=== PATIENT | female | born 1990 | race Caucasian/White ===

== ENCOUNTER 2016-10-30 12:12 | Emergency (ER) | payer OTHER ==
[~2016-10-30] VITALS: Ht 165.1 cm; Wt 51.6 kg
[2016-10-30 12:17] VITALS: TEMP 36.8; Ht 165.1 cm; Wt 51.6 kg
[2016-10-30] MEDS ORDERED: OMEG10007 PO (13:24)
[2016-10-30] MEDS ORDERED: SODIUM CHLORIDE 0.9% 1000ML 1,000 ML IV STA ×2 (14:20→16:05)
[2016-10-30] MEDS ORDERED: METOCLOPRAMIDE HCL INJ 5 MG/ML 2 ML VIAL IV STA (14:20)
[2016-10-30] MEDS ORDERED: DiphenhydrAMINE HCL 50 MG/ML VIAL IV STA (14:20)
[2016-10-30] MEDS ORDERED: KETOROLAC TROMETHAMINE 30 MG/ML VIAL IV STA (14:40)
--- NOTE | 2016-10-30 14:42 | EMERGENCY ROOM VISIT NOTE ---
History Report prepared by Angelique: Antony Motley Under the Supervision of: Dr. Levar Herzog M.D. First contact with patient: 14:06 Chief Complaint: HEADACHE Stated Complaint: MIGRAINE, DIZZINESS, LIGHTHEADED, SORE NECK/BACK History of Present Illness The patient is a 26 year old female who presents to the Emergency Room with complaints of a worsening headache that started four weeks ago. She rates her discomfort as a 8/10 in severity and describes it as a pressure. She admits that the pain is relieved with Advil and Excedrin. The patient states that it radiates from in between her eyes into her jaw and it makes her ears pop. The patient states that the first week, the headache began as a tingling sensation in the middle of her head, which would turn into a pressure at night. She states that her headache eventually turned into a constant pressure. She states that she went to her PCP who thought it was a sinus infection and gave her medication. The patient states that she went back to her PCP since the medication did not work. She states he found two abnormal muscles in her neck, which caused her pain with palpation. The patient states that she went to her physical therapist four days ago when her therapist was worried it was an SCM strain causing the pressure. She states that during her visit, the therapist was just massaging her muscles. The patient states that following her session, she started to experience lightheadedness. She reports that the lightheadedness and dizziness continued throughout the weekend. The patient states that she suddenly started to experience nausea yesterday. The patient is accompanied by her mother who states that she was initially worried that her symptoms were due to Lyme's disease since she and Lyme's twice and the patient [place]. The patient states that she had a Lyme's test done, but reports her test was negative. The patient admits that she has an appointment with Neurology November 13. The patient's mother admits that she has been giving the patient Doxycycline twice a day for the last two days due to her fear that it was Lyme's disease She denies any daily medication, medical problems, fever, chills, vomiting, chest pain, alcohol, drugs, smoking, a possible since her last normal menstrual period was last week, urinary symptoms, rashes, STD and a tick bite. Source of History: patient, parent Onset: four weeks ago Position: head Symptom Intensity: 10/18 Quality: pressure Timing: worsening Modifying Factors (Relieving): other (Advil, Excedrin) Associated Symptoms: + neck pain, + nausea, No fevers, No chills, No chest pain, No vomiting, No abdominal pain, No urinary symptoms, No rash Review of Systems See HPI for pertinent positives and negatives. A total of ten systems were reviewed and were otherwise negative. Past Medical & Surgical The patient reports no pertinent medical or surgical history. Family History Heart disease Social History Smoking Status: Never Smoker Smokeless Tobacco Use: No Alcohol Use: occasionally Drug Use: none Marital Status: Housing Status: lives with significant other Occupation Status: employed Current/Historical Medications Scheduled Doxycycline Hyclate (Doxycycline Hyclate), 1 CAP PO BID Fish Oil ([place]-3), 1 CAP PO DAILY Allergies Coded Allergies: Sulfa Antibiotics (Unverified Allergy, Unknown, ., 10/30/16) Physical Exam Vital Signs Date Time Temp Pulse Resp B/P (MAP) Pulse Ox O2 Delivery O2 Flow Rate FiO2 10/30/16 22:50 90 120/72 98 10/30/16 20:29 87 131/69 98 Room Air 10/30/16 18:08 93 20 113/69 99 Room Air 10/30/16 16:19 90 18 113/63 98 Room Air 10/30/16 15:25 85 18 109/65 98 Room Air 10/30/16 14:10 94 18 128/81 100 Room Air 10/30/16 12:17 36.8 131 16 151/86 98 Room Air Physical Exam GENERAL: Awake, alert, well-appearing, in no distress HENT: Normocephalic, atraumatic. Oropharynx unremarkable. EYES: Normal conjunctiva. Sclera non-icteric. NECK: Supple. No nuchal rigidity. FROM. No JVD. RESPIRATORY: Clear to auscultation. CARDIAC: Regular rate, normal rhythm. Extremities warm and well perfused. Pulses equal. ABDOMEN: Soft, non-distended. No tenderness to palpation. No rebound or guarding. No masses. RECTAL: Deferred. MUSCULOSKELETAL: Chest examination reveals no tenderness. The back is symmetrical on inspection without obvious abnormality. There is no CVA tenderness to palpation. No joint edema. LOWER EXTREMITIES: Calves are equal size bilaterally and non-tender. No edema. No discoloration. NEURO: Normal sensorium. No sensory or motor deficits noted. CNII-XII intact, cerebellar intact, stable gait. SKIN: No rash or jaundice noted. Medical Decision & Procedures ER Provider Diagnostic Interpretation: Radiology results as stated below per my review and radiologist interpretation: MRI OF THE BRAIN WITHOUT AND WITH IV CONTRAST CLINICAL HISTORY: 3 week contrast and headache. Dizziness. COMPARISON STUDY: No previous studies for comparison. TECHNIQUE: Utilizing a 1.5 Bhavna magnet and dedicated coil, multiplanar, multiecho imaging of the brain was performed pre and postcontrast administration. IV administration of 5 mL of Gadavist contrast was uneventful. FINDINGS: No areas of restricted diffusion are present. No acute intracranial hemorrhage, midline shift or mass effect is present. Brain volume is normal. Ventricular system is normal. There is 4 mm of cerebellar tonsillar ectopia. Calvarial signal is normal. No intracranial mass or pathologic enhancement is present. There is a 2 mm punctate focus of white matter T2 hyperintensity within the right parietal lobe. This is of doubtful significance. There are no extra-axial collections. Flow-voids for the major intracranial vessels are present. There is no fluid within the mastoid air cells. Sinuses are clear. IMPRESSION: 1. No acute intracranial findings. 2. No intracranial mass or pathologic enhancement. 3. Mild cerebellar tonsillar ectopia of 4 mm. This does not meet criteria for a Chiari malformation. 4. Punctate 2 mm focus of white matter T2 hyperintensity within the right parietal lobe. This is nonspecific but of doubtful significance. Electronically signed by: Heriberto Hammond M.D. 10/30/2016 5:23 PM Dictated Date/Time: 10/30/2016 5:17 PM Laboratory Results Test 10/30/16 13:28 10/30/16 14:50 Lyme Disease IgG Antibody NEG (NEG) Urine Test NEG (NEG) Laboratory results reviewed by me Medications Administered Medications (Trade) Dose Ordered Sig/Gera Route Start Time Stop Time Status Last Admin Dose Admin Sodium Chloride 1,000 ml @ 999 mls/hr Q1H1M STAT IV 10/30/16 14:20 10/30/16 15:20 DC 10/30/16 14:42 999 MLS/HR Metoclopramide HCl (Reglan Inj) 10 mg NOW STAT IV 10/30/16 14:20 10/30/16 14:25 DC 10/30/16 14:41 10 MG Diphenhydramine HCl (Benadryl Inj) 25 mg NOW STAT IV 10/30/16 14:20 10/30/16 14:25 DC 10/30/16 14:41 25 MG Ketorolac Tromethamine (Toradol Inj) 30 mg NOW STAT IV 10/30/16 14:40 10/30/16 14:41 DC 10/30/16 14:44 30 MG Sodium Chloride 1,000 ml @ 999 mls/hr Q1H1M STAT IV 10/30/16 16:05 10/30/16 17:05 DC 10/30/16 16:05 999 MLS/HR Dexamethasone Sodium Phosphate (Decadron Inj) 10 mg NOW ONCE IV 10/30/16 16:15 10/30/16 16:16 DC 10/30/16 16:17 10 MG Ceftriaxone Sodium 2000 mg/ Dextrose 70 ml @ 100 mls/hr ONE STAT IV 10/30/16 18:47 10/30/16 19:28 DC 10/30/16 21:59 100 MLS/HR Procedure Procedure: Lumbar puncture. Indication: Headache Written consent was obtained after explaining risk, benefits, and alternatives and patient was agreeable. A time-out was completed verifying correct patient, procedure, site, positioning, and special equipment if applicable. The patient was initially placed in the right lateral decubitus position in a semi- position with help from the tech. However, after unsuccessfull attempt patient was placed in seated position with help from tech. The area was cleansed and draped in usual sterile fashion. 1% lidocaine was used anesthetize the surrounding skin area. A new <22-gauge 3.5-inch> spinal needle was placed in the L4-L5 interspace for first and second attempt and L3-L4 for third attempt. Attempts unsuccessful. Minor contusion/hematoma to site. Otherwise, patient neurovascularly intact. No complications. ED Course 1418: The patient was evaluated in room C12B. A complete history and physical exam was performed. 1420: Ordered Benadryl Injection 25 mg IV, Reglan Injection 10 mg IV, Sodium Chloride 1000 ml @ 999 mls/hr IV. 1440: Ordered Toradol Injection 30 mg IV. 1532: I reevaluated the patient and she is feeling better. I ordered an MRI. 1605: Ordered Sodium Chloride 1000 ml @ 999 mls/hr IV. 1615: Ordered Decadron Injection 10 mg IV. 1700: Ordered Gadavist 5 mmol IV. 1836: I reevaluated the patient and she is still experiencing symptoms. 184: Ordered Ceftriaxone Sodium 2000 mg/ Dextrose 70 ml @ 100 mls/hr IV. 190: I reevaluated the patient and she is resting comfortably. I discussed treatment options. I advised that she has a lumbar puncture done before taking antibiotics. I will treat her until the confirmatory test comes back. She will be discharged home after the puncture. She agrees to the plan. Medical Decision I reviewed the patient's past medical history, medications, and the nursing notes as described above. The patient's presentation and history were concerning for tension headache, migraine, sinus headache, sinusitis, pseudotumor, infection, Lyme's disease, dehydration, and intracranial hemorrhage, . Patient is a 26-year-old woman presents emergency Department with persistent frontal headache that has been constant for the past 3 weeks per history of present illness. Arrival of the patient is well-appearing and in no acute distress. Afebrile with stable vital signs. While patient reports intermittent lightheadedness denies any difficulty with gait and otherwise denies any changes in vision or hearing. On exam patient is neurologically intact with cranial nerve deficits, ambulates with steady gait, no cerebellar deficits. The patient denies having any history of known tick bites or rashes she feels that she may be exposed to ticks on a regular basis. Because of being out in the combs frequently. Because of this a Lyme screen was ordered despite having a negative screen recently. Otherwise patient was given a migraine cocktail with good effect however the patient still reported some residual pressure. The considering the patient has had prolonged symptoms I had a discussion with the patient and family and we agreed to perform an MRI. MRI with and without contrast was negative for any acute emergent findings. In the interim the patient's initial Lyme screen came back positive for a single IgM antibody, with confirmatory Western blot pending. Considering this finding will begin treatment until confirmatory test done. I discussed with the patient and family the option for a lumbar puncture which would help clarify if there was any infection in the CSF, which could help inform duration of treatment, however my suspicion for meningitis is low considering the patient is well-appearing without any neurologic deficits. Patient was consented and agreed for the lumbar puncture which was attempted however unfortunately was unsuccessful despite 3 attempts. I then discussed with the patient that strong consideration should be given to proceeding with a 28 day course of antibiotics however I will provide a 14 day course to begin and the patient can further discuss with her doctor. Patient and family also given infectious disease as a follow-up as the were particularly concerned to have specialty recommendations. She was given a single dose of ceftriaxone to begin her treatment in the ED. Patient and family were agreeable with plan and were discharged per instructions. (11/01 entry): In ED today, I received a phone call from patient describing soreness and muscle spasm in LP site from day prior. She was wondering if this is normal. She denies weakness or loss of sensation. I explained that considering her LP was unsuccessful and had minor contusion/hematoma, local inflammation/soreness can be expected. I recommended to patient to continue apap /ib for pain scheduled as well as to apply heat for muscle relaxation. I recommend that activity be limited as tolerated but some activity is encouraged to minimize worsening soreness and muscle tightness. Patient requesting muscle relaxer as well. 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 Rx for ativan called in to her pharmacy. Impression Primary Impression: Headache Additional Impression: Lyme disease Scribe Attestation The scribe's documentation has been prepared under my direction and personally reviewed by me in its entirety. I confirm that the note above accurately reflects all work, treatment, procedures, and medical decision making performed by me. Departure Information Dispostion Home / Self-Care Prescriptions Doxycycline Hyclate (Doxycycline Hyclate) 100 Mg Cap 1 CAP PO BID for 14 Days, #28 CAP Prov: Levar Herzog M.D. 10/30/16 Referrals Cisco Hooks III, M.D. (PCP) Patient Instructions ED Lyme Disease, Headache Pain, My [facility] Additional Instructions Please follow up with your primary care physician in the next 1-3 for re- evaluation and to follow up on your Lyme confirmatory test. We were unable to obtain a spinal fluid sample today however your exam is reassuring. Discuss with your doctor the duration of your antibiotic course. To begin you were given a prescription for 14 days. Our case planner will also place a referral for you to see infectious disease. Otherwise, your exam did not show signs of an emergent condition at this time. Return to the emergency department for worsening symptoms as described in the accompanying instructions. Problem Qualifiers
[2016-10-30 16:00] LABS: LYME DISEASE AB IGG NEG (NEG)
[2016-10-30 16:08] LABS: LYME DISEASE AB IGM POS (NEG)
[2016-10-30] MEDS ORDERED: DEXAMETHASONE SOD INJ 10 MG/ML VIAL IV ONE (16:15)
[2016-10-30] MEDS ORDERED: GADAVIST IV PRN (17:00)
--- NOTE | 2016-10-30 17:24 | DIAGNOSTIC IMAGING REPORT ---
MRI OF THE BRAIN WITHOUT AND WITH IV CONTRAST CLINICAL HISTORY: 3 week contrast and headache. Dizziness. COMPARISON STUDY: No previous studies for comparison. TECHNIQUE: Utilizing a 1.5 Bhavna magnet and dedicated coil, multiplanar, multiecho imaging of the brain was performed pre and postcontrast administration. IV administration of 5 mL of Gadavist contrast was uneventful. FINDINGS: No areas of restricted diffusion are present. No acute intracranial hemorrhage, midline shift or mass effect is present. Brain volume is normal. Ventricular system is normal. There is 4 mm of cerebellar tonsillar ectopia. Calvarial signal is normal. No intracranial mass or pathologic enhancement is present. There is a 2 mm punctate focus of white matter T2 hyperintensity within the right parietal lobe. This is of doubtful significance. There are no extra-axial collections. Flow-voids for the major intracranial vessels are present. There is no fluid within the mastoid air cells. Sinuses are clear. IMPRESSION: 1. No acute intracranial findings. 2. No intracranial mass or pathologic enhancement. 3. Mild cerebellar tonsillar ectopia of 4 mm. This does not meet criteria for a Chiari malformation. 4. Punctate 2 mm focus of white matter T2 hyperintensity within the right parietal lobe. This is nonspecific but of doubtful significance. Electronically signed by: Heriberto Hammond M.D. 10/30/2016 5:23 PM Dictated Date/Time: 10/30/2016 5:17 PM
[2016-10-30] MEDS ORDERED: CEFTRIAXONE SOD INJ 2,000 MG in DEXTROSE 5% 50ML 50 ML IV STA (18:47)
[2016-10-30] MEDS ORDERED: XYLOCAINE 1%/SOD BICARB 20 ML VIAL INFIL ONE (20:53)
[2016-10-30] MEDS ORDERED: DXY100 PO (21:59)
[2016-10-30 22:50] VITALS: BP 120/72; PULSE 90; O2SAT 98
[2016-11-06 11:09] LABS: 18KDIGG BAND NONREACTIVE (NONREACTIVE); 23KDIGG BAND NONREACTIVE (NONREACTIVE); 23KDIGM BAND REACTIVE (NONREACTIVE); 28KDIGG BAND NONREACTIVE (NONREACTIVE); 30KDIGG BAND REACTIVE (NONREACTIVE); 39KDIGG BAND NONREACTIVE (NONREACTIVE); 39KDIGM BAND NONREACTIVE (NONREACTIVE); 41KDIGG BAND REACTIVE (NONREACTIVE); 41KDIGM BAND NONREACTIVE (NONREACTIVE); 45KDIGG BAND NONREACTIVE (NONREACTIVE); 58KDIGG BAND NONREACTIVE (NONREACTIVE); 66KDIGG BAND NONREACTIVE (NONREACTIVE); 93KDIGG BAND NONREACTIVE (NONREACTIVE)
== END 2016-10-30 22:51 | disposition home or self-care (01) ==
LOC: C.EDB 12:14 → C.EDC 22:51
DX: R51 Headache (principal); A69.20 Lyme disease, unspecified; Z79.899 Other long term (current) drug therapy

== ENCOUNTER → 2016-11-20 | Outpatient (CLI) | payer OTHER ==
[~2016-11-20] MED LIST: DXY100 PO; IBUP-103 PO; LORA-741 PO; MAGN400T6 PO; OMEG10007 PO; green tea extract; tumeric PO
[2016-11-20 16:43] LABS: BASO % 0.5 %; BASO ABS # 0.04 K/uL (0-0.2); COMPLETE YES; EOS % 1.7 %; IG% 0.2 %; LYMPH % 37.1 %; LYMPH ABS # 3.28 K/uL (1.2-3.4); MEAN CORPUSCULAR HEMOGLOBIN 31.5 pg (25-34); MEAN CORPUSCULAR HGB CONC 33.9 g/dl (32-36); MEAN PLATELET VOLUME 10.5 fL (7.4-10.4); MONO % 7.3 %; NEUT % 53.2 %; PLATELET COUNT 355 K/uL (130-400); RED BLOOD COUNT 4.41 M/uL (4.2-5.4); WHITE BLOOD COUNT 8.85 K/uL (4.8-10.8)
[2016-11-20 17:15] LABS: ALT/SGPT 21 U/L (12-78); AST/SGOT 17 U/L (15-37); BLOOD UREA NITROGEN 11 mg/dl (7-18); BUN/CREATININE RATIO 13.2 (10-20); CARBON DIOXIDE 27 mmol/L (21-32); CHLORIDE 107 mmol/L (98-107); CREATININE 0.81 mg/dl (0.60-1.20); GLUCOSE 75 mg/dl (70-99); POTASSIUM 3.5 mmol/L (3.5-5.1); SODIUM 141 mmol/L (136-145)
[2016-11-20 17:17] LABS: ALB/GLOB RATIO 1.3 (0.9-2); ALKALINE PHOSPHATASE 81 U/L (45-117)
[2016-11-27 01:40] LABS: 18KDIGG BAND NONREACTIVE (NONREACTIVE); 23KDIGG BAND NONREACTIVE (NONREACTIVE); 23KDIGM BAND REACTIVE (NONREACTIVE); 28KDIGG BAND NONREACTIVE (NONREACTIVE); 30KDIGG BAND NONREACTIVE (NONREACTIVE); 39KDIGG BAND NONREACTIVE (NONREACTIVE); 39KDIGM BAND NONREACTIVE (NONREACTIVE); 41KDIGG BAND REACTIVE (NONREACTIVE); 41KDIGM BAND NONREACTIVE (NONREACTIVE); 45KDIGG BAND NONREACTIVE (NONREACTIVE); 58KDIGG BAND NONREACTIVE (NONREACTIVE); 66KDIGG BAND NONREACTIVE (NONREACTIVE); 93KDIGG BAND NONREACTIVE (NONREACTIVE)
[2016-11-29 14:29] LABS: ANAPLASMA PHAGOCYTOPHIL IGG <1:64 (<1:64); ANAPLASMA PHAGOCYTOPHIL IGM <1:20 (<1:20); ANTI-CENTROMERE AB <1.0 NEG AI (<1.0 NEG); ANTI-SS-A <1.0 NEG AI (<1.0 NEG); ANTI-SS-B <1.0 NEG AI (<1.0 NEG); CYTOMEGALOVIRUS IGG AB <0.60 U/ML; DNA ds CRITHIDIA NEGATIVE (NEGATIVE); MICROSOMAL AB <1 IU/ML (<9); R. TYPHI IgG AB Not Detected (Not Detected); R. TYPHI IgM AB Not Detected (Not Detected); RMSF IgM AB Not Detected (Not Detected); Sm Antibody <1.0 NEG AI (<1.0 NEG)
== END | disposition home or self-care (01) ==
LOC: C.LAB1850 15:05
PROVIDERS: ATTEND Internal Medicine Infectious Disease
DX: M13.0 Polyarthritis, unspecified (principal)

== ENCOUNTER 2016-11-26 12:32 | Day surgery (SDC) | payer OTHER ==
[~2016-11-26] VITALS: Ht 165.1 cm; Wt 51.0 kg
[2016-11-26] VITALS (7 sets, daily range): BP systolic 119–165; BP diastolic 64–85; PULSE 81–108; TEMP 36.7–37.3; O2SAT 97–99; Ht 165.1 cm; Wt 51.0 kg
[~2016-11-26 12:32] MED LIST changes: -IBUP-103 PO; -LORA-741 PO; -MAGN400T6 PO; -green tea extract; -tumeric PO
[2016-11-26] MEDS ORDERED: LORA-741 PO (12:52)
[2016-11-26] MEDS ORDERED: IBUP-103 PO (12:52)
[2016-11-26] MEDS ORDERED: green tea extract (12:53)
[2016-11-26] MEDS ORDERED: MAGN400T6 PO (12:53)
[2016-11-26] MEDS ORDERED: tumeric PO (12:53)
[2016-11-26] MEDS ORDERED: CEFTRIAXONE SOD INJ 2000 MG in DEXTROSE 5% 50ML IV SCH (14:00)
--- NOTE | 2016-11-26 14:19 | Discharge Instructions ---
Discharge Instructions Procedure Procedure Date: Nov 26, 2016. Reason for visit: Lymes Disease, Meningitis. Discharge Discharge Date: Nov 26, 2016. Discharge Diagnosis: Headaches. Instructions Activity Recommendations: 1 Day-May resume regular activity, 48 Hours of decreased exertion, 1 Day with no driving/machine use Return to School/Work: no limitations Recommended Home Diet: Resume Previous Diet Provider Instructions: Lumbar Puncture performed with Fluoroscopic guidance [L45 ] level with [22] needle. No complications. Allergies Coded Allergies: Sulfa Antibiotics (Unverified Allergy, Unknown, ., 11/26/16) Raffi Hester Recommendations: Call your doctor if: * Temperature above 101 degrees * Pain not relieved by pain medicine ordered * There is increased drainage or redness from any incision * You have any unanswered questions or concerns. Your Doctors Instructions noted above were prepared by provider Wilfrid Roberto. Patient Signature Section: Patient Instructions Signature Page Karen Pacheco Patient (or Guardian) Signature/Date: I have read and understand the instructions given to me by my caregivers. Caregiver/RN/Doctor Signature/Date: The above-named patient and/or guardian has received patient instructions on this date. + Original Patient Signature Page (only) stays with chart. Please make copy for patient.
[2016-11-26] MEDS ORDERED: ACETAMINOPHEN 500 MG TAB PO PRN (14:30)
--- NOTE | 2016-11-26 14:33 | DIAGNOSTIC IMAGING REPORT ---
LUMBAR PUNCTURE DIAGNOSTIC CLINICAL HISTORY: MD order headache. Lyme' s disease. FLUOROSCOPY TIME: 6 seconds PROCEDURE: The procedure, risks and benefits were discussed with the patient including the risk of spinal headache, bleeding and infection. The patient agreed to the procedure and informed written consent was obtained. The procedure was performed by Dr. Roberto following a timeout. The left L4-L5 interlaminar space was targeted. Skin overlying the space was prepped and draped in the usual sterile fashion and local anesthesia was achieved with 1% lidocaine. Under intermittent fluoroscopic guidance, a 20-gauge x 3 1/2 in. Sprotte needle was inserted into the thecal sac. A total of 9cc of clear, colorless cerebral spinal fluid was obtained and spread amongst 4 vials. The patient tolerated the procedure well. There were no immediate complications. The specimens were sent to the laboratory at the request of the referring physician. IMPRESSION: Successful fluoroscopic guided lumbar puncture with removal of 9 cc of clear, colorless cerebral spinal fluid. No immediate complications. Opening pressure was 10 The above report was generated using voice recognition software. It may contain grammatical, syntax or spelling errors. Electronically signed by: Wilfrid Roberto M.D. 11/26/2016 2:32 PM Dictated Date/Time: 11/26/2016 2:32 PM
[2016-11-26 15:33] LABS: CSF APPEARANCE CLEAR; CSF COLOR COLORLESS; CSF XANTHOCHROMIC NO XANTHOCHROMIA
[2016-12-04 08:56] LABS: ALBUMIN 4.7 g/dL (3.7-5.1); IGG CSF 1.3 mg/dL (0.8-7.7); IGG SERUM 797 mg/dL (694-1618); LYME AB INDEX SCREENED NEGATIVE; LYME DNA PCR CSF OR SYNOVIAL Not detected (Not Detected); LYME DNA SOURCE CSF; MYELIN BASIC PROTEIN 663 <2.0 mcg/L (0.0-4.0)
== END 2016-11-26 18:47 | disposition home or self-care (01) ==
LOC: C.ACU 12:32
PROVIDERS: ATTEND Internal Medicine Infectious Disease
DX: A69.20 Lyme disease, unspecified (principal)

== ENCOUNTER → 2016-11-27 | Outpatient (CLI) | payer OTHER ==
[~2016-11-27] MED LIST changes: +IBUP-103 PO; +LORA-741 PO; +MAGN400T6 PO; +green tea extract; +tumeric PO
[2016-11-27 18:41] LABS: HEMATOCRIT 36.3 % (37-47); MEAN CELL VOLUME 91.2 fL (80-100); MEAN CORPUSCULAR HEMOGLOBIN 31.4 pg (25-34); MEAN CORPUSCULAR HGB CONC 34.4 g/dl (32-36); MEAN PLATELET VOLUME 10.6 fL (7.4-10.4); PLATELET COUNT 235 K/uL (130-400); RED BLOOD COUNT 3.98 M/uL (4.2-5.4); WHITE BLOOD COUNT 8.75 K/uL (4.8-10.8)
[2016-11-27 18:52] LABS: ALT/SGPT 17 U/L (12-78); AST/SGOT 18 U/L (15-37); BLOOD UREA NITROGEN 12 mg/dl (7-18); BUN/CREATININE RATIO 18.7 (10-20); CALCIUM 8.3 mg/dl (8.5-10.1); CARBON DIOXIDE 26 mmol/L (21-32); CHLORIDE 106 mmol/L (98-107); CREATININE 0.66 mg/dl (0.60-1.20); GLUCOSE 86 mg/dl (70-99); POTASSIUM 3.7 mmol/L (3.5-5.1); SODIUM 139 mmol/L (136-145)
[2016-11-27 18:55] LABS: ALB/GLOB RATIO 1.2 (0.9-2); ALKALINE PHOSPHATASE 66 U/L (45-117)
--- NOTE | 2016-12-07 06:50 | CODING QUERY NO DIAGNOSIS ---
Valid Physician Order Needed A valid physician order must be submitted in order to properly bill for the service(s) provided, including date of service(s), valid diagnosis, and physician signature. If these tests are done on a recurring basis the original physician order must be submitted in order to code and bill for the service(s) provided. Please fax us the original, signed physician order so that we may expedite billing to [phone] DOS 11/27/16 * CMP, CBC, ESR Thank you! Tiara [place] Health Information Management
== END | disposition home or self-care (01) ==
LOC: C.LABSPEC 17:35
PROVIDERS: ATTEND Internal Medicine Infectious Disease
DX: A69.20 Lyme disease, unspecified (principal); Z51.81 Encounter for therapeutic drug level monitoring; Z79.899 Other long term (current) drug therapy

== ENCOUNTER → 2016-12-03 | Outpatient (CLI) | payer OTHER ==
[2016-12-03 17:32] LABS: BASO % 0.3 %; BASO ABS # 0.03 K/uL (0-0.2); COMPLETE YES; EOS % 1.4 %; HEMATOCRIT 35.6 % (37-47); IG% 0.1 %; LYMPH % 25.3 %; LYMPH ABS # 2.19 K/uL (1.2-3.4); MEAN CORPUSCULAR HEMOGLOBIN 31.5 pg (25-34); MEAN CORPUSCULAR HGB CONC 34.6 g/dl (32-36); MEAN PLATELET VOLUME 10.6 fL (7.4-10.4); MONO % 7.4 %; NEUT % 65.5 %; PLATELET COUNT 263 K/uL (130-400); RED BLOOD COUNT 3.91 M/uL (4.2-5.4); WHITE BLOOD COUNT 8.64 K/uL (4.8-10.8)
[2016-12-03 17:40] LABS: ALT/SGPT 20 U/L (12-78); AST/SGOT 15 U/L (15-37); BLOOD UREA NITROGEN 9 mg/dl (7-18); BUN/CREATININE RATIO 15.2 (10-20); CALCIUM 8.5 mg/dl (8.5-10.1); CARBON DIOXIDE 28 mmol/L (21-32); CHLORIDE 106 mmol/L (98-107); GLUCOSE 111 mg/dl (70-99); POTASSIUM 3.2 mmol/L (3.5-5.1); SODIUM 141 mmol/L (136-145)
[2016-12-03 17:43] LABS: ALB/GLOB RATIO 1.3 (0.9-2); ALKALINE PHOSPHATASE 63 U/L (45-117)
== END | disposition home or self-care (01) ==
LOC: C.LABSPEC 12:53
PROVIDERS: ATTEND Internal Medicine Infectious Disease
DX: A69.20 Lyme disease, unspecified (principal); Z51.81 Encounter for therapeutic drug level monitoring

== ENCOUNTER 2018-08-01 05:40 | Inpatient (IN) ==
--- OUTSIDE RECORDS SUMMARY | 2018-08-01 05:45 | External Medical Summary | Continuity of Care Document ---
:1990 Author Name Chavez Johnston, Provider Address Unavailable Unavailable , Care Team Providers Name Role Phone Unavailable Unavailable Unavailable Jyoti Johnston, Judd Cai Unavailable [email or web address] FRANKY III, E Unavailable Unavailable Unavailable Unavailable Unavailable Problems Lyme disease (088.81) (A69.20) Polyarthritis (716.50) (M13.0) Allergies and Adverse Reactions Sulfa Drugs (Allergy) Medications Doxycycline Hyclate 100 MG Oral Tablet; Take 1 tablet twice daily Preston Montes Start: 23-Nov-2016 Quantity: 60 Refills: 0 [place] 3 1000 MG Oral Capsule; TAKE 1 CAPSULE Daily , M.D. Start: 20-Nov-2016 Refills: 0 Magnesium 200 MG Oral Tablet Chewable; Take 1 tablet daily , M.D. Start: 20-Nov-2016 Refills: 0 Advil 200 MG Oral Capsule; TAKE 1 CAPSULE EVERY 4 TO 6 HOURS . , M.D. Start: 20-Nov-2016 Refills: 0 Procedures Procedures not documented Immunizations Immunizations not documented Family History Unknown Family Member Family history of thyroid disease (V18.19) Status: Active Comments: Family History (Z83.49) Family history of High cholesterol (272.0) Status: Active Comments: Family History (E78.00) Social History - Smoking Status Never smoker Plan of Treatment Planned Observations Planned Goals not documented Results No Known Results Results not documented Encounters Appointment; Judd Montes M.D. 11-Dec-2016 15:30 Encounter Diagnosis: Problem not documented Appointment; Judd Montes M.D. 26-Nov-2016 11:45 Encounter Diagnosis: Problem not documented Appointment; Judd Montes M.D. 20-Nov-2016 14:15 Encounter Diagnosis: Problem not documented
[2018-08-01] MEDS ORDERED: OXYTOCIN 30 UNITS/500 ML BAG IV PRN ×3 (06:22→14:39)
--- NOTE | 2018-08-01 06:30 | History & Physical Report ---
Date of Service August 01, 2018 Assessment & Plan (1) Amniotic fluid leakin yo at 38.6 wks with LOF/SROM VSS Afebrile GBS negative Discussed expectant management vs induction/ augmentation with pitocin ( decrease risk of intraamniotic infection) She likes to think about it Plans to have epidural for pain Admit, monitor, IVF, Labs (2) SROM (spontaneous rupture of membranes): History of Present Illness Chief Complaint: Leaking of fluids Primary Care Provider: NO PCP Patient is a 28 yo at 38.6 wks who woke up with LOF at 4 am, it was gushx2, has been trickling clear fluids since then No VB/ Fever/ chills/ Ctxs/ abdominal pain +FM Her has been uncomplicated GBS negative h/o Lyme disease/ meningitis Allergies Allergy/AdvReac Type Severity Reaction Status Date / Time Sulfa (Sulfonamide Allergy Unknown Rash Verified 08/01/18 06:17 Antibiotics) Home Medications Home Medications Medication Instructions Recorded Confirmed Type vit-iron fum-folic ac 1 tab PO DAILY 08/01/18 08/01/18 History [ Vitamin] Patient History Medical History Lyme meningitis Social History Preferred Language: Dominican Communication Ability: Effective 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 Beliefs That Will Affect Care: None marital status: Current Living Situation: Spouse Other Information That Helps Us Care for You: No Feels Safe at Home: Yes Safety Concerns: Feels Safe At This Time Smoking Status: Never smoker Second Hand Exposure: No Hx Alcohol Use: No 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
[2018-08-01] MEDS: LACTATED RINGER'S 1,000 ML IV PRN ×3 (06:44→14:02)
[2018-08-01 06:49] LABS: Hematocrit (blood only) 37.6 % (37-47); Hemoglobin 12.7 g/dL (12.0-16.0); Mean Corpuscular Volume 92.2 fL (80-100); Platelet Count 240 K/uL (130-400); RDW Coefficient of Variation 13.3 % (11.5-14.5); RDW Standard Deviation 44.7 fL (36.4-46.3); Red Blood Count 4.08 M/uL (4.2-5.4); White Blood Count 11.88 K/uL (4.8-10.8)
[2018-08-01 07:11] LABS: Mean Corpuscular Hgb Conc 33.8 g/dL (32-36)
--- NOTE | 2018-08-01 11:10 | Labor Progress Brief Note ---
Date of Service August 01, 2018 Met pt and family MANJU @ 0400HRS today Ctx 2-4mins , mild FHR ; CAT1 Results & Data Vital Signs (Past 12 Hours) Vital Signs Temp Pulse Resp BP 08/01/18 09:28 37.0 C 18 08/01/18 07:42 75 137/85 08/01/18 07:41 36.8 C 18 08/01/18 06:51 93 H 140/80 08/01/18 06:23 103 H 149/89 H 08/01/18 06:11 98 H 135/75 08/01/18 06:01 104 H 130/81 08/01/18 05:50 36.9 C 95 H 18 137/86
[2018-08-01] MEDS ORDERED: BUPIVACAINE 0.25% 30 ML VIAL ONE (11:31)
[2018-08-01] MEDS ORDERED: ePHEDrine sulfate 50 MG/ML AMP ONE (11:32)
[2018-08-01] MEDS ORDERED: fentaNYL citrate 100 MCG/2 ML VIAL ONE (11:32)
[2018-08-01] MEDS ORDERED: fentaNYL 2MCG/ML ROPIV 1.25MG/ML 100 ML BAG EPI ONE (11:33)
--- NOTE | 2018-08-01 11:55 | Anesthesiology Consultation ---
Date of Service August 01, 2018 Assessment & Plan (1) Encounter for pre-operative examination: Chart Review Chart Review: Acceptable Risk for Labor Epidural History Height/Weight Height: 5 ft 5 in Weight: 68.039 kg Allergies Allergy/AdvReac Type Severity Reaction Status Date / Time Sulfa (Sulfonamide Allergy Unknown Rash Verified 08/01/18 06:17 Antibiotics) Medications Home Medications Medication Instructions Recorded Confirmed Last Taken vit-iron fum-folic ac 1 tab PO DAILY 08/01/18 08/01/18 07/31/18 08:00 [ Vitamin] Active Medications Generic Name Dose Route Start Last Admin Trade Name Freq PRN Reason Stop Dose Admin Lactated Ringer's 1,000 mls @ 150 mls/hr 08/01/18 06:22 08/01/18 10:45 Lr IV 08/03/18 06:21 150 mls/hr .[id number] PRN Administration L&D Protocol Protocol Past Medical History Medical History GERD (gastroesophageal reflux disease) Lyme meningitis Approx 2 years ago Social History Smoking Status: Never smoker Hx Alcohol Use: No Hx Substance Use: No substance use type: does not use Physical Exam Vital Signs Last Vital Signs Temp 37.0 C 08/01/18 11:46 Pulse 75 08/01/18 07:42 Resp 20 08/01/18 11:46 BP 137/85 08/01/18 07:42
[2018-08-01] MEDS ORDERED: NALOXONE HCL 1 MG in SODIUM CHLORIDE 0.9% 1000ML 1,000 ML IV PRN (12:40)
[2018-08-01] MEDS ORDERED: ePHEDrine sulfate 50 MG/ML AMP IV PRN (12:40)
[2018-08-01] MEDS ORDERED: DiphenhydrAMINE HCL 50 MG/ML VIAL IV PRN (12:40)
[2018-08-01] MEDS ORDERED: fentaNYL 2MCG/ML ROPIV 1.25MG/ML 100 ML BAG EPI PRN (12:40)
[2018-08-01] MEDS ORDERED: NALOXONE HCL 0.4 MG/1 ML VIAL/CARP IV PRN (12:40)
[2018-08-01] MEDS ORDERED: ONDANSETRON INJ 2 MG/ML 2 ML VIAL IV PRN (12:40)
[2018-08-01] MEDS ORDERED: NALBUPHINE HCL INJ 10 MG/ML AMP IV PRN (12:40)
--- NOTE | 2018-08-01 13:01 | Labor Progress Brief Note ---
Date of Service August 01, 2018 Pt doing well SROM @ 0400AM Epidural analgesia FHR; CAT1 Ctx 2-5mins VE: 9/100/0 station Results & Data Vital Signs (Past 12 Hours) Vital Signs Temp Pulse Resp BP Pulse Ox 08/01/18 12:56 85 167/80 H 99 08/01/18 12:51 63 98 08/01/18 12:46 69 99 08/01/18 12:41 66 97 08/01/18 12:40 81 140/67 08/01/18 12:37 63 128/62 08/01/18 12:36 72 98 08/01/18 12:35 73 142/63 H 08/01/18 12:31 94 H 97/54 L 98 08/01/18 12:29 104 H 105/54 L 08/01/18 12:26 99 H 98 08/01/18 12:25 100 H 126/56 L 08/01/18 12:22 93 H 127/62 08/01/18 12:21 102 H 98 08/01/18 12:19 97 H 121/66 08/01/18 12:16 100 H 131/73 97 08/01/18 12:13 104 H 132/81 08/01/18 12:11 97 H 97 08/01/18 12:06 94 H 97 08/01/18 12:01 98 H 98 08/01/18 11:57 90 146/83 H 08/01/18 11:56 88 100 08/01/18 11:46 37.0 C 20 08/01/18 09:28 37.0 C 18 08/01/18 07:42 75 137/85 08/01/18 07:41 36.8 C 18 08/01/18 06:51 93 H 140/80 08/01/18 06:23 103 H 149/89 H 08/01/18 06:11 98 H 135/75 08/01/18 06:01 104 H 130/81 08/01/18 05:50 36.9 C 95 H 18 137/86
[2018-08-01] MEDS ORDERED: METHYLERGONOVINE MALEATE 0.2 MG/ML AMP ONE (14:27)
[2018-08-01] MEDS ORDERED: ACETAMINOPHEN W/CODEINE #3 1 TAB PO PRN (14:39)
[2018-08-01] MEDS ORDERED: SUPERCREAM 0.870% 15 GM JAR EXT PRN (14:39)
[2018-08-01] MEDS ORDERED: miSOPROStol 200 MCG TAB PR ONE (14:39)
[2018-08-01] MEDS ORDERED: OXYCODONE/ACETAMINOPHEN 5mg/325mg TAB PO PRN (14:39)
[2018-08-01] MEDS ORDERED: METHYLERGONOVINE MALEATE 0.2 MG/ML AMP IM ONE (14:39)
[2018-08-01] MEDS ORDERED: ACETAMINOPHEN 325 MG TAB PO PRN (14:39)
[2018-08-01] MEDS ORDERED: BENZOCAINE 20% AER SPR 82.5 GM CAN EXT PRN (14:39)
[2018-08-01] MEDS ORDERED: HYDROCORTISONE ACETATE 25 MG SUPP PR PRN (14:39)
[2018-08-01] MEDS ORDERED: DIPHTHERIA/TETANUS/PERTUSSIS 0.5 ML SYR/VIAL IM ONE (14:39)
--- NOTE | 2018-08-01 15:47 | Anesthesia Procedure Note ---
Date of Service August 01, 2018 Anesthesia Post Epidural Note Vital Signs Vital Signs: Temp Pulse Resp BP Pulse Ox 08/01/18 15:26 112 H 134/61 08/01/18 15:11 37.4 C 109 H 18 134/61 08/01/18 14:56 103 H 138/67 08/01/18 14:46 96 H 135/59 L 08/01/18 14:41 109 H 140/68 99 08/01/18 14:36 108 H 100 08/01/18 14:31 115 H 98 08/01/18 14:26 117 H 136/86 99 08/01/18 14:21 104 H 98 08/01/18 14:16 136 H 100 08/01/18 14:11 131 H 100 08/01/18 14:06 106 H 100 08/01/18 14:01 93 H 100 08/01/18 13:57 96 H 136/74 08/01/18 13:56 86 100 08/01/18 13:51 88 100 08/01/18 13:46 88 100 08/01/18 13:41 82 130/69 100 08/01/18 13:36 79 100 08/01/18 13:31 81 100 08/01/18 13:26 83 133/73 100 08/01/18 13:21 81 99 08/01/18 13:19 37.0 C 18 08/01/18 13:16 78 99 08/01/18 13:11 75 133/73 99 08/01/18 13:06 75 99 08/01/18 13:01 74 99 08/01/18 12:56 85 167/80 H 99 08/01/18 12:51 63 98 08/01/18 12:46 69 99 08/01/18 12:41 66 97 08/01/18 12:40 81 140/67 08/01/18 12:37 63 128/62 08/01/18 12:36 72 98 08/01/18 12:35 73 142/63 H 08/01/18 12:31 94 H 97/54 L 98 08/01/18 12:29 104 H 105/54 L 08/01/18 12:26 99 H 98 08/01/18 12:25 100 H 126/56 L 08/01/18 12:22 93 H 127/62 08/01/18 12:21 102 H 98 08/01/18 12:19 97 H 121/66 08/01/18 12:16 100 H 131/73 97 08/01/18 12:13 104 H 132/81 08/01/18 12:11 97 H 97 08/01/18 12:06 94 H 97 08/01/18 12:01 98 H 98 08/01/18 11:57 90 146/83 H 08/01/18 11:56 88 100 08/01/18 11:46 37.0 C 08/01/18 09:28 37.0 C 18 08/01/18 07:42 75 137/85 08/01/18 07:41 36.8 C 18 08/01/18 06:51 93 H 140/80 08/01/18 06:23 103 H 149/89 H 08/01/18 06:11 98 H 135/75 08/01/18 06:01 104 H 130/81 08/01/18 05:50 36.9 C 95 H 18 137/86 Notes Mental Status: alert / awake / arousable and participated in evaluation Patient Amnestic to Procedure: Yes Nausea / Vomiting: adequately controlled Pain: adequately controlled Airway Patency, RR, SpO2: stable & adequate BP & HR: stable & adequate Hydration State: stable & adequate Neuraxial Anesthesia: was administered and sensory block resolved Anesthetic Complications: no major complications apparent and Pt Satisfied with anesthetic care Epidural: Removed without complications and With tip intact
[2018-08-01] MEDS: DOCUSATE SODIUM 100 MG CAP PO SCH (20:57)
[2018-08-01] MEDS: IBUPROFEN 600 MG TAB PO PRN (20:58)
--- NOTE | 2018-08-01 21:20 | Delivery Summary ---
DATE OF OPERATION: 08/01/2018 DELIVERY NOTE The patient delivered a live male in left occiput anterior presentation. There was no nuchal cord. Infant was delivered, placed on mother's abdomen. Cord was cut after 1 minute. The patient's weight and Apgars are in the pediatric record. Placenta was spontaneously delivered. Inspection of the placenta shows a 3-vessel cord. ESTIMATED BLOOD LOSS: 700 mL. Inspection of the perineum shows a second-degree midline laceration which was repaired with 2-0 Vicryl in layers. Rectal exam post repair showed good sphincter tone. Baby and mother are doing well and stable in recovery. I attest to the content of the Intraoperative Record and any orders documented therein. Any exception s are noted below.
[2018-08-02] MEDS: IBUPROFEN 600 MG TAB PO PRN ×4 (02:31→20:37)
[2018-08-02 06:30] LABS: Hematocrit (blood only) 36.1 % (37-47); Hemoglobin 12.2 g/dL (12.0-16.0); Mean Corpuscular Hgb Conc 33.8 g/dL (32-36); Mean Corpuscular Volume 92.3 fL (80-100); Mean Platelet Volume 10.1 fL (7.4-10.4); Platelet Count 216 K/uL (130-400); RDW Coefficient of Variation 13.6 % (11.5-14.5); RDW Standard Deviation 45.6 fL (36.4-46.3); Red Blood Count 3.91 M/uL (4.2-5.4)
[2018-08-02] MEDS: DOCUSATE SODIUM 100 MG CAP PO SCH ×2 (09:12→20:37)
[2018-08-02] MEDS: FERROUS SULFATE 325 MG TAB PO SCH (09:12)
[2018-08-02] MEDS: PRENATAL VITAMIN 1 TAB PO SCH (09:12)
--- NOTE | 2018-08-02 09:22 | Obstetrical Progress Note ---
Date of Service August 02, 2018 Assessment & Plan (1) normal course: PPD #1 pt doing well anticipate disch tomorrow Subjective Ambulation: ambulating normally Voiding: no voiding problems Passing Gas:: Yes Diet Tolerance:: regular diet Lochia:: Small Feeding Type:: breast feeding Review of Systems All systems reviewed & are unremarkable except as noted in HPI & below Physical Exam Vital Signs (Past 24 Hours) Last Vital Signs Temp 36.7 C 08/02/18 07:39 Pulse 79 08/02/18 07:39 Resp 16 08/02/18 07:39 BP 114/76 08/02/18 07:39 Pulse Ox 97 08/02/18 03:40 Constitutional WD/WN, vitals as above well developed and well nourished Eyes PERRL, conjunctivae normal, anicteric sclerae Neck trachea midline, no thyromegaly Respiratory normal respiratory effort, lungs clear to auscultation Auscultation: no crackles, no rales and no wheezes Cardiovascular RRR, no murmur, no edema Gastrointestinal (Abdomen) normal bowel sounds, soft, nontender, no hepatosplenomegaly Uterus is below umbilicus Musculoskeletal no cyanosis or clubbing, extremities motor strength 5/5 Skin no rashes, warm and dry Neurologic patellar DTR's 2+ bilat, sensation intact Psychiatric A+Ox3, euthymic affect Genitourinary normal external appearance
[2018-08-02] MEDS ORDERED: BISACODYL 5 MG TABEC PO SCH (20:00)
[2018-08-03] MEDS ORDERED: BISACODYL 10 MG SUPP PR PRN
--- NOTE | 2018-08-03 04:27 | Obstetrical Progress Note ---
Date of Service August 03, 2018 Assessment & Plan (1) normal course: PPD #2 pt doing well discharge home today Supervising Physician Co-Signing Physician Notes Comfort Perkins MD Subjective Pt doing well Review of Systems Review of Systems: All systems reviewed & are unremarkable except as noted in HPI & below Physical Exam Physical Exam: Fundus firm Respiratory: normal respiratory effort, lungs clear to auscultation Cardiovascular: RRR, no murmur, no edema Gastrointestinal (Abdomen): normal bowel sounds, soft, nontender, no hepatosplenomegaly Results & Data Vital Signs (Past 12 Hours) Vital Signs Temp Pulse Resp BP 08/03/18 00:00 36.7 C 79 18 122/81 08/02/18 20:05 37.0 C 96 H 20 123/78
--- NOTE | 2018-08-03 04:32 | Discharge Summary ---
Date of Service August 03, 2018 Admission HPI Per Admitting Provider Patient is a 28 yo at 38.6 wks who woke up with LOF at 4 am, it was gushx2, has been trickling clear fluids since then No VB/ Fever/ chills/ Ctxs/ abdominal pain +FM Her has been uncomplicated GBS negative h/o Lyme disease/ meningitis Admission Exam (Per Admitting) Respiratory normal respiratory effort, lungs clear to auscultation Cardiovascular RRR, no murmur, no edema Gastrointestinal (Abdomen) normal bowel sounds, soft, nontender, no hepatosplenomegaly Discharge Data Consultations 08/01/18 06:22 Consult Anesthesiology Stat Hospital Course (1) normal course: Supervising Physician Co-Signing Physician Notes Comfort Perkins MD
[2018-08-03 06:51] LABS: Hematocrit (blood only) 34.7 % (37-47)
[2018-08-03] MEDS: IBUPROFEN 600 MG TAB PO PRN ×2 (07:16→12:18)
[2018-08-03] MEDS: PRENATAL VITAMIN 1 TAB PO SCH (09:31)
[2018-08-03] MEDS: DOCUSATE SODIUM 100 MG CAP PO SCH (09:32)
[2018-08-03] MEDS: FERROUS SULFATE 325 MG TAB PO SCH (09:32)
== END 2018-08-03 12:55 | disposition home or self-care (01) | DRG 807 ==
LOC: OPB 05:40 → 4S1 05:43 → 4S2 17:29